=== PATIENT | female | born 1965 | race Caucasian/White ===

== ENCOUNTER 2022-04-26 08:14 | Outpatient (CLI) | payer BC, SELFPAY ==
--- OUTSIDE RECORDS SUMMARY | 2022-04-26 08:23 | XMS_ITS | Clinical Summary ---
:1965 Author Organization [facility] [facility] [place] [address] Care Team Providers Name Role Phone Jacqueline Leung MD Primary Care Provider [phone] Allergies No known active allergies Medications Medication Sig Dispensed Refills Start Date End Date Status SPRINTEC (28) 0.25 MG-35 take 1 tablet 28 0 12/23/2006 Active MCG TAB by oral route once daily lisinopril (PRINIVIL; Take 1 tablet 0 02/09/2010 Active ZESTRIL) 10 mg tablet by mouth once daily. hydrochlorothiazide 12.5 Take 1 capsule 0 02/09/2010 Active mg capsule by mouth once daily. Active Problems Not on file Social History Tobacco Use Types Packs/Day Years Used Date Never Smoker Alcohol Use Standard Drinks/Week Comments Yes 0 (1 standard drink = 0.6 oz pure alcoho l) social Sex Assigned at Date Recorded Not on file Obstetrics History Last Filed Vital Signs Vital Sign Reading Time Taken Comments Blood Pressure 129/89 02/09/2010 1:46 PM CDT Pulse 90 02/09/2010 1:46 PM CDT Temperature 37.2 ??C (98.9 ??F) 02/09/2010 1:46 PM CDT Respiratory Rate - - Oxygen Saturation - - Inhaled Oxygen Concentration - - Weight 90.4 kg (199 lb 6.4 oz) 02/09/2010 1:46 PM CDT Height - - Body Mass Index - - Plan of Treatment Health Maintenance Due Date Last Done Comments Tdap 1976 Depression screening for age 12+ 1977 BMI (ht and wt on same day) for age 1206/05/1983 18+ Hepatitis C screening for age 18-79 1983 Tetanus booster 1985 Colonoscopy through age 75 2010 Lipids for age 45-75 2010 Mammogram for age 45-75 2010 Zoster (shingles) series for age 50+ 2015 (1 of 2) Pap test for age 21-65 11/10/2017 11/10/2014, 11/10/2014, 02/19/2005 COVID-19 vaccine series (3 - Booster 04/17/2021 02/20/2021, 01/29/2021 for Pfizer series) Influenza for age 50-64 02/28/2022 Results Not on filefrom Last 3 Months Insurance Payer Benefit Plan / Subscriber ID Effective Dates Phone Addre ss Type Group BLUE CROSS BLUE CROSS OF [id number] 2020-Present [address] [address] [place] [address] Care Teams Cloth Bolt Bander Relationship Specialty Start Date End Date Jacqueline Leung MD PCP - General Family Practice 07/04/211999 [place] [address]
[2022-04-26 10:19] LABS: Albumin* 4.5 g/dL (3.3-5.0); Chloride* 103 mmol/L (96-114)
[2022-04-26 10:20] LABS: Potassium* 4.5 mmol/L (3.6-5.1); Sodium* 144 mmol/L (135-149)
[2022-04-26 10:22] LABS: Aspartate Amino Transferase* 31 U/L (12-35); Bilirubin Total* 0.4 mg/dL (0.1-1.5); Blood Urea Nitrogen* 24 mg/dL (7-30); Carbon Dioxide* 29 mmol/L (20-32); Cholesterol* 208 mg/dL (90-199); Creatinine* 0.7 mg/dL (0.5-1.5); Estimated Glomerular Filt Rate 101 ml/min; Glucose* 112 mg/dL (60-115); Total Protein* 7.2 g/dL (6.0-8.3); Triglycerides* 226 mg/dL (40-149)
[2022-04-26 10:23] LABS: Alanine Aminotransferase* 27 U/L (4-35); Alkaline Phosphatase* 90 U/L (40-150); Calcium* 9.7 mg/dL (8.4-10.6); HDL Cholesterol* 56 mg/dL (>=50); LDL Cholesterol Calculated 106 mg/dL (<100)
== END 2022-04-26 08:15 | disposition home or self-care (01) ==
PROVIDERS: PCP Family Medicine; Visit Provider Family Medicine
DX: Z01.419 Encounter for gynecological examination (general) (routine) without abnormal findings (principal); I10 Essential (primary) hypertension; E78.1 Pure hyperglyceridemia; R53.83 Other fatigue; E55.9 Vitamin D deficiency, unspecified; R73.01 Impaired fasting glucose
CPT/HCPCS: 80053; 80061

== ENCOUNTER 2022-04-30 13:40 | Outpatient (CLI) | payer BC, SELFPAY ==
--- OUTSIDE RECORDS SUMMARY | 2022-04-30 13:44 | XMS_ITS | Clinical Summary ---
:1965 Author Organization [employer] [facility] [place] [address] Care Team Providers Name Role Phone Jacqueline Leung MD Primary Care Provider [phone] Allergies No known active allergies Medications [...] Type Group BLUE CROSS BLUE CROSS OF [id number] 2020-Present [address] [address] [place] [address] Care Teams Cra Relationship Specialty Start Date End Date Jacqueline Leung MD PCP - General Family Practice 07/04/211999 [place] [address]
--- OUTSIDE RECORDS SUMMARY | 2022-04-30 13:44 | XMS_ITS | Continuity of Care Document ---
:1965 Author Organization [facility] Address [address] [place] [address] [address] [address] Insurance Providers Payer Plan Claims Claims Policy Group Relation Employer Guarantor Guarant or Guarantor Guarantor Address Phone Number Number Name Address Ph one Blue BLUE [address] tel: [phone] Self Ivory Weems [id number] [phone] CROSS [phone] [facility] [phone] [id number] [place] [address] [place] [address] Blue BLUE [address] tel: [phone] Self Ivory Weems 1965 [id number] [phone]) Cross [place]OSS [phone] [facility] [phone] [place] [id number] [place], [place] [id number] [place] [address] Problems Condition ICD9 code ICD10 code SNOMED code Start Date End Date Status Encounter for screening, Z13.9 Final unspecified Essential (primary) I10 Final hypertension Results No Results Allergies, adverse reactions, alerts No known allergies and adverse reactions Medications No administered medications reported Vital Signs No vital signs reported Social History No smoking Hx information available
[2022-04-30 17:28] LABS: Vitamin D 25 Hydroxy* 33 ng/mL (30-80)
[2022-04-30 18:03] LABS: Vitamin B12* 551 pg/mL (243-894)
== END 2022-04-30 13:41 | disposition home or self-care (01) ==
PROVIDERS: PCP Family Medicine; Visit Provider Family Medicine
DX: R53.83 Other fatigue (principal); E55.9 Vitamin D deficiency, unspecified; R73.01 Impaired fasting glucose; I10 Essential (primary) hypertension; E66.9 Obesity, unspecified
CPT/HCPCS: 82306; 82607

== ENCOUNTER 2022-07-16 18:51 | Outpatient (CLI) | payer BC, SELFPAY ==
--- NOTE | 2022-07-16 20:00 | CRLHL7_ITS ---
For Patients: As a result of the Century Cures Act, medical imaging exams and procedure reports are released immediately into your electronic medical record. You may view this report before your referring provider. If you have questions, please contact your health care provider. BILATERAL SCREENING MAMMOGRAM WITH COMPUTER-AIDED DETECTION AND TOMOSYNTHESIS TECHNIQUE: CC and MLO views were obtained. These mammographic images have been obtained using full-field digital technique. These mammographic images were interpreted with the benefit of computer-aided detection. Breast Tomosynthesis was used in this interpretation. COMPARISON FILM: 06/19/21, 05/02/20, 01/13/19. FINDINGS: There are scattered areas of fibroglandular density IMPRESSION: There is no radiographic evidence for malignancy. ASSESSMENT: BI-RADS Category 2: Benign RECOMMENDATION: Routine screening mammogram in 1 year. A lay language report of this examination will be provided to the patient. Krish Zavala M.D. Diagnostic Radiologist [email or web address] NONI/Dictated by: Krish Zavala MD @ 07/17/2022 10:50:00 AM (Electronically Signed)
== END 2022-07-16 18:52 | disposition home or self-care (01) ==
PROVIDERS: PCP Family Medicine; Visit Provider Family Medicine
DX: Z12.31 Encounter for screening mammogram for malignant neoplasm of breast (principal)
CPT/HCPCS: 77063; 77067

== ENCOUNTER 2023-04-28 07:45 | Outpatient (REF) | payer BC, SELFPAY | END 2023-04-28 07:46 | disposition home or self-care (01) | LOC: NFLDREF 07:45 | PROVIDERS: PCP Family Medicine; Referring Provider Family Medicine; Visit Provider Family Medicine | DX: E78.1 Pure hyperglyceridemia (principal); E55.9 Vitamin D deficiency, unspecified; I10 Essential (primary) hypertension | CPT/HCPCS: 80053; 80061; 82306 ==

== ENCOUNTER 2023-10-16 09:35 | Outpatient (CLI) | payer BC, SELFPAY ==
--- OUTSIDE RECORDS SUMMARY | 2023-10-20 08:32 | XMS_ITS | Continuity of Care Document ---
Author Name Unknown Organization [facility] Address [address] [place] [address] [address] Insurance Providers Payer Plan Claims Address Claims Phone Policy Number Group Number Relation Employer Guarantor Name Guarantor Guarantor Address Guarantor Phone Blue Cross BLUE CROSS [address] [address] [address] tel:[phone] Self Ivory Weems [place] 1965 [address] [place] [address] Blue Cross BLUE CROSS [address] [address] [address] tel:[phone] Self Ivory Weems [place] [place] 1965 [address] [place], [place] [address] Blue Cross 220G Blue Cross 220G [id number] Self Ivory Weems [place] [place] 1965 [address] [place] [address] Problems Condition ICD9 code ICD10 code SNOMED code Start Date End Date S tatus Prediabetes R73.03 Final Exercise induced bronchospasm J45.990 Final Pure hyperglyceridemia E78.1 F inal Allergic rhinitis, unspecified J30.9 Final Acute pharyngitis, unspecified J02.9 Final Pure hyperglyceridemia E78.1 F inal Vitamin D deficiency, unspecified E55.9 Final Essential (primary) hypertension I10 Final Pure hyperglyceridemia E78.1 A dmitting Essential (primary) hypertension I10 Admitting Vitamin D deficiency, unspecified E55.9 Admitting Essential (primary) hypertension I10 Final Pure hyperglyceridemia E78.1 F inal Mild intermittent asthma, uncomplicated J45.20 Fin al Allergic rhinitis, unspecified J30.9 Final Gastro-esophageal reflux disease without esophagitis K21.9 Final Exercise induced bronchospasm J45.990 Final Encounter for gynecological examination (general) (routine) without abnormal findings Z01.419 Final Prediabetes R73.03 Final Obesity, unspecified E66.9 Fin al Allergic rhinitis due to pollen J30.1 Final Decreased libido R68.82 Final Hyperlipidemia, unspecified E78.5 Final Essential (primary) hypertension I10 Final Prediabetes R73.03 Final Hyperlipidemia, unspecified E78.5 Admitting Essential (primary) hypertension I10 Admitting Prediabetes R73.03 Admitting Results No Results Allergies, adverse reactions, alerts No known allergies and adverse reactions Medications No administered medications reported Vital Signs No vital signs reported Social History No smoking Hx information available
--- OUTSIDE RECORDS SUMMARY | 2023-10-20 08:32 | XMS_ITS | Clinical Summary ---
Author Name Unknown Organization [facility] [employer] [facility] Address [place], [place] [address] Care Team Providers Care Vehicle Check In Clerk Name Role Phone Jacqueline Leung MD Primary Care Provider + Allergies No known active allergies Medications Medication Sig Dispensed Refills Start Date End Date Status SPRINTEC (28) 0.25 MG-35 MCG TAB take 1 tablet by oral route once daily 28 0 12/23/2006 Active lisinopril (PRINIVIL; ZESTRIL) 10 mg tablet Take 1 tablet by mouth once daily. 0 02/09/2010 Active hydrochlorothiazide 12.5 mg capsule Take 1 capsule by mouth once daily. 0 02/09/2010 Active Social History Tobacco Use Types Packs/Day Years Used Date Smoking Tobacco: Never Alcohol Use Standard Drinks/Week Comments Yes 0 (1 standard drink = 0.6 oz pur e alcohol) social Sex and Gender Information Value Date Recorded Sex Assigned at Not on file Gender Identity Not on file Sexual Orientation Not on file Obstetrics History Last Filed Vital Signs Vital Sign Reading Time Taken Comments Blood Pressure 129/89 02/09/2010 1:46 PM CDT Pulse 90 02/09/2010 1:46 PM CDT Temperature 37.2 ??C (98.9 ??F) 02/09/2010 1:46 PM CD T Respiratory Rate - - Oxygen Saturation - - Inhaled Oxygen Concentration - - Weight 90.4 kg (199 lb 6.4 oz) 02/09/2010 1:46 P M CDT Height - - Body Mass Index - - Plan of Treatment Health Maintenance Due Date Last Done Comments Tdap 1976 Depression screening for age 12+ 1977 HIV for age 15-65 1980 BMI (ht and wt on same day) for age 18+ 1983 Hepatitis C screening for ag e 18-79 1983 Tetanus booster 1985 Colonoscopy through age 75 2010 Lipids for age 45-75 2010 Mammogram for age 45-75 2010 Zoster (shingles) series for age 50+ (1 of 2) 2015 Pap test for age 21-65 11/10/2017 5, 11/10/2014, 02/19/2005 COVID-19 vaccine series (2022- season) 2023 02/20/2021, 01/29/2021 Influenza for age 50-64 02/29/2024 Pneumococcal series for age 6-64 Aged Out No longer eligible b ased on patient's age to complete this topic Procedures Procedure Name Priority Date/Time Associated Diagnosis Comments MANAGER OF BROADCAST CONTENT THIN PREP PAP SCREEN IMAGED Routine 11/10/2014 1:47 PM CDT from Last 3 Months or Most Recently Relevant to Health Maintenance Results * MANAGER OF BROADCAST CONTENT THIN PREP PAP SCREEN IMAGED (11/10/2014 1:47 PM CDT) MANAGER OF BROADCAST CONTENT CYTOLOGY See Anatomic Pathology case 11/16/2014 2:00 PM CDT [facility] Specimen (specimen) (Cervical/Vagina l) Client Collect / Unknown 11/10/2014 1:47 PM CDT 11/11/2014 1:47 PM CDT Camelia Nash MD PATHOLOGY/[facility]OLOGY [facility] [address] [place] [address], [place] from Last 3 Months or Most Recently Relevant to Health Maintenance Care Teams Vehicle Check In Clerk Relationship Specialty Start Date End Date Jacqueline Leung MD [address] [place] [address] PCP - General Family Practice 07/04/21
== END 2023-10-16 09:36 | disposition home or self-care (01) ==
LOC: NFLDREF 10-20 08:30
PROVIDERS: PCP Family Medicine; Referring Provider Family Medicine; Visit Provider Family Medicine
DX: E78.5 Hyperlipidemia, unspecified (principal); I10 Essential (primary) hypertension; R73.03 Prediabetes
CPT/HCPCS: 80053; 80061

== ENCOUNTER 2024-01-08 13:15 | Outpatient (CLI) | payer BC, SELFPAY ==
--- OUTSIDE RECORDS SUMMARY | 2024-01-08 13:17 | XMS_ITS | Clinical Summary ---
Author Organization [facility] Address [place], [place] [address] Care Team Providers Care Sweatband Perforator Name Role Phone Jacqueline Leung MD Primary [...] Name Priority Date/Time Associated Diagnosis Comments MANAGER AGRICULTURAL THIN PREP PAP SCREEN IMAGED Routine 11/10/2014 1:47 PM CDT from Last 3 Months or Most Recently Relevant to Health Maintenance Results * MANAGER AGRICULTURAL THIN PREP PAP SCREEN IMAGED (11/10/2014 1:47 PM CDT) MANAGER AGRICULTURAL CYTOLOGY See Anatomic Pathology case 11/16/2014 2:00 PM CDT [facility] Specimen (specimen) (Cervical/Vagina l) Client Collect / Unknown 11/10/2014 1:47 PM CDT 11/11/2014 1:47 PM CDT Camelia Nash MD PATHOLOGY[facility] [address] [place] [address], [place] from Last 3 Months or Most Recently Relevant to Health Maintenance Care Teams Sweatband Perforator Relationship Specialty Start Date End Date Jacqueline Leung MD [address] [place] [address] PCP - General Family Practice 07/04/21
--- OUTSIDE RECORDS SUMMARY | 2024-01-08 13:17 | XMS_ITS | Continuity of Care Document ---
Author Organization [address] [place] [address] Insurance Providers Payer Plan Claims Address Claims Phone Policy Number Group Number Relation Employer Guarantor Name Guarantor Guarantor Address Guarantor Phone Blue Cross BLUE CROSS [address] [address], [place] [address] tel:[phone] Self Ivory Weems [place] [place] 1965 [address] [place] [address] Blue Cross BLUE CROSS [address] [address] [address] tel:[phone] Self Ivory Weems [place] [place] 1965 [address] [place] [address] Blue Cross 220G Blue Cross 220G [id number] Self Ivory Weems [place] [place] 1965 [address] [place] [address] Problems Condition ICD9 code ICD10 code SNOMED code Start Date End Date S tatus Prediabetes R73.03 Final Allergic rhinitis, unspecified J30.9 Final Exercise induced bronchospasm J45.990 Final Pure hyperglyceridemia E78.1 F inal Acute pharyngitis, unspecified J02.9 Final Pure hyperglyceridemia E78.1 F inal Vitamin D deficiency, unspecified E55.9 Final Essential (primary) hypertension I10 Final Pure hyperglyceridemia E78.1 A dmitting Vitamin D deficiency, unspecified E55.9 Admitting Essential (primary) hypertension I10 Admitting Essential (primary) hypertension I10 Final Gastro-esophageal reflux disease without esophagitis K21.9 Final Mild intermittent asthma, uncomplicated J45.20 Fin al Pure hyperglyceridemia E78.1 F inal Allergic rhinitis, unspecified J30.9 Final Encounter for gynecological examination (general) (routine) without abnormal findings Z01.419 Final Prediabetes R73.03 Final Exercise induced bronchospasm J45.990 Final Allergic rhinitis due to pollen J30.1 Final Decreased libido R68.82 Final Obesity, unspecified E66.9 Fin al Hyperlipidemia, unspecified E78.5 Final Essential (primary) hypertension I10 Final Prediabetes R73.03 Final Hyperlipidemia, unspecified E78.5 Admitting Essential (primary) hypertension I10 Admitting Prediabetes R73.03 Admitting Herpesviral vesicular dermatitis B00.1 Final longterm (current) use of non-steroidal anti-inflammatories (NSAID) Z79.1 Final Hyperlipidemia, unspecified E78.5 Final Prediabetes R73.03 Final Vitamin D deficiency, unspecified E55.9 Final Essential (primary) hypertension I10 Final Pure hyperglyceridemia E78.1 F inal Other fatigue R53.83 Final Obesity, unspecified E66.9 Fin al Encounter for screening mammogram for malignant neoplasm of breast Z12.31 Admitt ing Results No Results Allergies, adverse reactions, alerts No known allergies and adverse reactions Medications No administered medications reported Vital Signs No vital signs reported Social History No smoking Hx information available
--- NOTE | 2024-01-08 13:20 | CRLHL7_ITS ---
For Patients: As a result of the Century Cures Act, medical imaging exams and procedure reports are released immediately into your electronic medical record. You may view this report before your referring provider. If you have questions, please contact your health care provider. BILATERAL SCREENING MAMMOGRAM WITH COMPUTER-AIDED DETECTION AND TOMOSYNTHESIS TECHNIQUE: CC and MLO views were obtained. These mammographic images have been obtained using full-field digital technique. These mammographic images were interpreted with the benefit of computer-aided detection. Breast Tomosynthesis was used in this interpretation. COMPARISON FILM: 07/16/22, 06/19/21, 06/26/21(RT ONLY). FINDINGS: There are scattered areas of fibroglandular density. IMPRESSION: There is no radiographic evidence for malignancy. ASSESSMENT: BI-RADS Category 1: Negative RECOMMENDATION: Routine screening mammogram in 1 year. A lay language report of this examination will be provided to the patient. Krish Zavala M.D. Diagnostic Radiologist [email or web address] SP/Dictated by: Krish Zavala MD @ 01/12/2024 11:21:00 AM (Electronically Signed)
== END 2024-01-08 13:16 | disposition home or self-care (01) ==
PROVIDERS: PCP Family Medicine; Visit Provider Family Medicine
DX: Z12.31 Encounter for screening mammogram for malignant neoplasm of breast (principal)
CPT/HCPCS: 77063; 77067

== ENCOUNTER 2024-04-27 08:10 | Outpatient (CLI) | payer BC, SELFPAY ==
--- OUTSIDE RECORDS SUMMARY | 2024-04-28 09:43 | XMS_ITS | Continuity of Care Document ---
Author Organization [address] [place] [address] Insurance Providers Payer Plan Claims Address Claims Phone Policy Number Group Number Relation Employer Guarantor Name Guarantor Guarantor Address Guarantor Phone [employer] Cross BLUE CROSS [address] [address], [place] [address] tel:[phone] Self Ivory Weems [employer] 1965 [address] [place] [address] Blue [employer] [place]UE CROSS [address] [address] [address] [phone] Self Ivory Weems [employer] 1965 [address] [place] [address] Blue Cross 220G Blue Cross 220G [id number] Self Ivory Weems [employer] [place] 1965 [address] [place] [address] Problems Condition ICD9 code ICD10 code SNOMED code Start Date End Date S tatus Hyperlipidemia, unspecified E78.5 Final Essential (primary) hypertension I10 Final Prediabetes R73.03 Final Hyperlipidemia, unspecified E78.5 Admitting Essential (primary) hypertension I10 Admitting Prediabetes R73.03 Admitting Herpesviral vesicular dermatitis B00.1 Final rat exterminator (current) use of non-steroidal anti-inflammatories (NSAID) Z79.1 Final Hyperlipidemia, unspecified E78.5 Final Prediabetes R73.03 Final Vitamin D deficiency, unspecified E55.9 Final Essential (primary) hypertension I10 Final Pure hyperglyceridemia E78.1 F inal Other fatigue R53.83 Final Obesity, unspecified E66.9 Fin al Encounter for screening mammogram for malignant neoplasm of breast Z12.31 Admitt jackie Encounter for screening mammogram for malignant neoplasm of breast Z12.31 Final rat exterminator (current) use of non-steroidal anti-inflammatories (NSAID) Z79.1 Hyperlipidemia, unspecified E78.5 Prediabetes R73.03 Vitamin D deficiency, unspecified E55.9 Essential (primary) hypertension I10 Pure hyperglyceridemia E78.1 Other fatigue R53.83 Age-related osteoporosis without current pathological fracture M81.0 Results No Results Allergies, adverse reactions, alerts No known allergies and adverse reactions Medications No administered medications reported Vital Signs No vital signs reported Social History No smoking Hx information available
--- OUTSIDE RECORDS SUMMARY | 2024-04-28 09:43 | XMS_ITS | Clinical Summary ---
Author Organization [facility] Address [place], [place] [address] Care Team Providers Care Computer Assistant Name Role Phone Jacqueline Leung MD Primary [...] 11/10/2017 5, 11/10/2014, 02/19/2005 COVID-19 vaccine series (2023- season) 2024 02/20/2021, 01/29/2021 Influenza for age 50-64 02/29/2024 Pneumococcal series for age 6-64 Aged Out No longer eligible b ased on patient's age to complete this topic Procedures Procedure Name Priority Date/Time Associated Diagnosis Comments FOURCHETTE SEWER THIN PREP PAP SCREEN IMAGED Routine 11/10/2014 1:47 PM CDT from Last 3 Months or Most Recently Relevant to Health Maintenance Results * FOURCHETTE SEWER THIN PREP PAP SCREEN IMAGED (11/10/2014 1:47 PM CDT) FOURCHETTE SEWER CYTOLOGY See Anatomic Pathology case 11/16/2014 2:00 PM CDT [facility] Specimen (specimen) (Cervical/Vagina l) Client Collect / Unknown 11/10/2014 1:47 PM CDT 11/11/2014 1:47 PM CDT Camelia Nash MD PATHOLOGY[facility] [address] [place] [address], [place] from Last 3 Months or Most Recently Relevant to Health Maintenance Care Teams Computer Assistant Relationship Specialty Start Date End Date Jacqueline Leung MD [address] [place] [address] PCP - General Family Practice 07/04/21
== END 2024-04-27 08:11 | disposition home or self-care (01) ==
LOC: NFLDREF 04-28 09:42
PROVIDERS: PCP Family Medicine; Referring Provider Family Medicine; Visit Provider Family Medicine
DX: E78.5 Hyperlipidemia, unspecified (principal); R73.03 Prediabetes; E55.9 Vitamin D deficiency, unspecified; I10 Essential (primary) hypertension; E78.1 Pure hyperglyceridemia; R53.83 Other fatigue; M81.0 Age-related osteoporosis without current pathological fracture; Z79.1 Long term (current) use of non-steroidal anti-inflammatories (NSAID)
CPT/HCPCS: 80053; 80061; 82306; 84443

== ENCOUNTER 2025-04-28 08:13 | Outpatient (CLI) | payer BC, SELFPAY | END 2025-04-28 08:14 | disposition home or self-care (01) | LOC: NFLDREF 04-29 05:44 | PROVIDERS: PCP Family Medicine; Referring Provider Family Medicine; Visit Provider Family Medicine | DX: I10 Essential (primary) hypertension (principal); R73.03 Prediabetes; E78.5 Hyperlipidemia, unspecified; E55.9 Vitamin D deficiency, unspecified; M81.0 Age-related osteoporosis without current pathological fracture | CPT/HCPCS: 80053; 80061; 82306 ==

== ENCOUNTER 2025-06-16 09:48 | Outpatient (CLI) | payer BC, SELFPAY ==
--- NOTE | 2025-06-16 09:45 | CRLHL7_ITS ---
For Patients: As a result of the Century Cures Act, medical imaging exams and procedure reports are released immediately into your electronic medical record. You may view this report before your referring provider. If you have questions, please contact your health care provider. INDICATION: BILATERAL SCREENING MAMMOGRAM, ASYPTOMATIC 60 Y/O FEMALE COMPARISON: 01/08/2024, 07/16/2022, 06/19/2021 TECHNIQUE: Digital mammogram in CC and MLO projections including computer-aided detection (CAD) and tomosynthesis. BREAST COMPOSITION: There are scattered areas of fibroglandular density. FINDINGS: No suspicious findings. ASSESSMENT: BI-RADS 1 Negative RECOMMENDATION: Annual screening mammogram. A lay language report of this examination will be provided to the patient. Dictated by: Krish Zavala MD @ 06/16/2025 11:32:43 (Electronically Signed)
== END 2025-06-16 09:49 | disposition home or self-care (01) ==
LOC: MAMMO 09:49
PROVIDERS: PCP Family Medicine; Visit Provider Family Medicine
DX: Z12.31 Encounter for screening mammogram for malignant neoplasm of breast (principal)
CPT/HCPCS: 77063; 77067